=== PATIENT | male | born 1990 | race Caucasian/White ===

== ENCOUNTER 2020-08-21 23:22 | Emergency (ER) | payer OTHER ==
[2020-08-22] MEDS ORDERED: LODINE CAP 300300 MG PO (00:37)
[2020-08-22] MEDS ORDERED: KEFLEX CAP 250250 MG PO (00:37)
[2020-08-22] MEDS ORDERED: HYDROCODON-ACE1 EAC4 PO (01:55)
== END 2020-08-22 02:00 | disposition home or self-care (01) ==
LOC: ER1 23:22
DX: S62.634B Displaced fracture of distal phalanx of right ring finger, initial encounter for open fracture (principal); Z23 Encounter for immunization; W23.0XXA Caught, crushed, jammed, or pinched between moving objects, initial encounter; Y99.0 Civilian activity done for income or pay
CPT/HCPCS: 12002; 73130; 90471; 90715; 99283; J0690